=== PATIENT | male | born 1985 | race Caucasian/White ===

== ENCOUNTER 2024-02-06 14:39 | Emergency (ER) | payer BC, OTHER ==
[2024-02-06] MEDS ORDERED: ONDANSETRON 4 MG/2 ML VIAL ONE (15:20)
[2024-02-06] MEDS ORDERED: NA CHLORIDE 0.9% 1,000 ML ONE (15:21)
[2024-02-06] MEDS ORDERED: MORPHINE 4 MG/ML SYR ONE (15:21)
[2024-02-06 15:54] LABS: Absolute Eosinophils 0.1 K/uL (0-0.5); Absolute Lymphocytes (CBC) 1.1 K/uL (0.7-4.9); Absolute Monocytes 0.3 K/uL (0.1-1.3); Absolute Neutrophil 7.7 K/uL (1.8-8.0); Basophils % 0.1 % (0-1.3); Hematocrit 52.5 % (39.6-49.0); Hemoglobin 17.8 g/dL (13.6-17.9); MCH 31.2 pg (27.0-35.0); MCHC 33.9 g/dL (32.0-36.0); Monocytes % 3.2 % (3.3-12.3); Neutrophils % 83.7 % (41.7-73.7); Nucleated Red Blood Cells % 0.1 % (0-0); Platelets 269 thou/uL (152-406); Red Cell Distribution Width 12.8 % (12.1-15.2)
[2024-02-06 15:57] LABS: PTT, Activated Partial Thromb 29.2 SECONDS (24.3-36.9); Protime INR 1.19
[2024-02-06 16:03] LABS: Albumin 3.9 g/dL (3.4-5.0); Albumin/Globulin Ratio 1.1 (1.1-1.8); Anion Gap 12.2 mEq/L (5.0-15.0); Bilirubin Total 0.7 mg/dL (0.2-1.0); Globulin 3.5 g/dL (2.3-3.5); Potassium 4.2 mEq/L (3.5-5.1); Protein, Total 7.4 g/dL (6.4-8.2)
[2024-02-06] MEDS ORDERED: FENTANYL CITR 100 MCG/2 ML ONE (17:02)
--- NOTE | 2024-02-06 17:16 | RAD REPORT ---
EXAM DESCRIPTION: CT - Abdomen Pelvis W Contrast - 02/06/2024 4:36 pm CLINICAL HISTORY: ABD PAIN COMPARISON: No comparisons TECHNIQUE: Thin cut axial CT imaging of the abdomen and pelvis was performed following intravenous a dministration of iodinated contrast. Multiplanar reformats were generated and reviewed. All CT scans are performed using dose optimization technique as appropriate and may include automated exposure control or mA/KV adjustment according to patient size. FINDINGS: No suspicious findings in the lung bases. The liver, spleen, and pancreas show no suspicious findings. Gallbladder and biliary tree are also wi thout suspicious finding. Symmetric renal function is seen with no hydronephrosis or suspicious renal mass. Sub centimeter bila teral renal cortical fluid density lesions, difficult to characterize. No dilated bowel loops or bowel wall thickening. Nonspecific fluid opacification within segments of n ondistended small bowel and the ascending colon. Appendix is unremarkable. No free air, free fluid or inflammatory stranding. No hernia, mass or bulky lymphadenopathy. The urinary bladder is without sig nificant finding. No suspicious bony findings. IMPRESSION: No acute intra-abdominal process. Distal small bowel and ascending colon nonspecific fluid opacification as above, may relate to diarrh eal state.
--- NOTE | 2024-02-06 17:30 | ER ---
Nurse's Notes [facility] Name: Hayden Sepulveda Age: 38 yrs Sex: Male : 1985 Arrival Date: 02/06/2024 Time: 14:39 Bed 11 Private MD: Diagnosis: Noninfective gastroenteritis and colitis, unspecified Presentation: 02/05 15:09 Coronavirus screen: At this time, the client does not indicate any symptoms associated as6 with coronavirus-19. Ebola Screen: No symptoms or risks identified at this time. Risk Assessment: Do you want to hurt yourself or someone else? Patient reports no desire to harm self or others. 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 Initial Sepsis Screen: Does the patient meet any 2 criteria? No. Patient's initial sepsis screen is negative. Does the patient have a suspected source of infection? No. Patient's initial sepsis screen is negative. Onset of symptoms was February 06, 2024. 15:14 Acuity: REJI 3 as6 Triage Assessment: 15:15 General: Appears in no apparent distress. uncomfortable, Behavior is calm, cooperative, as6 restless. Pain: Complains of pain in umbilical area. EENT: No deficits noted. No signs and/or symptoms were reported regarding the EENT system. Neuro: Level of Consciousness is awake, alert, obeys commands, Oriented to person, place, time, situation. Cardiovascular: Capillary refill < 3 seconds Patient's skin is warm and dry. Respiratory: Respiratory effort is even, unlabored, Respiratory pattern is regular, symmetrical. GI: Reports lower abdominal pain, upper abdominal pain, diarrhea, nausea, vomiting. : No deficits noted. No signs and/or symptoms were reported regarding the genitourinary system. Derm: Skin is intact, is healthy with good turgor. Musculoskeletal: Circulation, motion, and sensation intact. Historical: - Allergies: 15:15 No Known Allergies; as6 - PMHx: 15:15 None; as6 - PSHx: 15:15 hernia; as6 - Immunization history:: Adult Immunizations up to date. - Infectious Disease History:: Denies. - Social history:: Smoking status: Patient denies any tobacco usage or history of. Screenin:17 [facility] ED Fall Risk Assessment (Adult) History of falling in the last 3 months, as6 including since admission No falls in past 3 months (0 pts) Confusion or Disorientation No (0 pts) Intoxicated or Sedated No (0 pts) Impaired Gait No (0 pts) Mobility Assist Device Used No (0 pt) Altered Elimination No (0 pt) Score/Fall Risk Level 0 - 2 = Low Risk Oriented to surroundings, Maintained a safe environment, Educated pt \T\ family on fall prevention, incl call for assistance when getting out of bed, Assessed \T\ reinforced patient's understanding of fall precautions. Abuse screen: Denies threats or abuse. Denies injuries from another. Nutritional screening: No deficits noted. Tuberculosis screening: No symptoms or risk factors identified. Assessment: 17:05 Reassessment: Patient appears in no apparent distress at this time. pt states slight as6 improvement in pain and nausea. provider notified of pt discomfort level. Vital Signs: 15:14 BP 112 / 71; Pulse 95; Resp 18 S; Temp 97.3(TE); Pulse Ox 99% on R/A; Weight 99.79 kg as6 (R); Height 5 ft. 10 in. (R); Pain 10/10; 17:06 BP 106 / 75; Pulse 92; Resp 16; Temp 97.2; Pulse Ox 99% on R/A; as6 15:14 Body Mass Index 31.57 (99.79 kg, 177.8 cm) as6 15:14 Pain Scale: Adult as6 ED Course: 14:40 Patient arrived in ED. ts1 14:41 Elli Comer PA-C is PHCP. sb4 14:41 Dante Waters MD is Attending Physician. sb4 15:09 Bandar Hahn, SATURNINO is Primary Nurse. as6 15:15 Triage completed. as6 15:17 Arm band placed on. as6 15:17 Bed in low position. Call light in reach. Client placed on continuous cardiac and pulse as6 oximetry monitoring. NIBP monitoring applied. 15:40 Blood Culture Adult (2) Sent. as6 15:40 Lactate w/ 2H reflex if indic. Sent. as6 15:40 Protime (+inr) Sent. as6 15:40 Ptt, Activated Sent. as6 15:40 CBC with Diff Sent. as6 15:40 Lipase Sent. as6 15:40 CMP Sent. as6 15:41 Inserted saline lock: 20 gauge in right antecubital area, using aseptic technique. as6 Blood collected. 16:38 CT Abd/Pelvis - IV Contrast Only In Process Unspecified. EDMS 17:36 Provided Education on: rx teaching. as6 17:36 No provider procedures requiring assistance completed. IV discontinued, intact, as6 bleeding controlled, No redness/swelling at site. Pressure dressing applied. Administered Medications: 15:41 Drug: NS 0.9% IV 1000 ml IV at 1 bolus Per protocol; 1000 mL bolus Route: IV; Rate: 1 as6 bolus; Site: right antecubital; 17:37 Follow up: Response: No adverse reaction; IV Status: Completed infusion; IV Intake: as6 1000ml 15:41 Drug: Ondansetron IVP 4 mg IVP once; over 2 minutes Route: IVP; Site: right antecubital;as6 17:37 Follow up: Response: No adverse reaction as6 15:41 Drug: morphine IVP or IV 4 mg IVP once over 4 mins Route: IVP; Infused Over: 4 mins; as6 Site: right antecubital; 17:37 Follow up: Response: No adverse reaction as6 17:05 Drug: fentaNYL (PF) IVP 50 mcg IVP once Route: IVP; Site: right antecubital; as6 17:37 Follow up: Response: No adverse reaction as6 Medication: 15:17 VIS not applicable for this client. as6 Intake: 17:37 IV: 1000ml; Total: 1000ml. as6 Outcome: 17:29 Discharge ordered by . [email or web address] 17:36 Discharged to home ambulatory, as6 17:36 Condition: stable 17:36 Discharge instructions given to patient, Instructed on discharge instructions, follow up and referral plans. medication usage, Demonstrated understanding of instructions, follow-up care, medications, Prescriptions given X 2, 17:37 Patient left the ED. as6 Signatures: Dispatcher [employer] Bandar Leahy RN RN as6 Elli Comer, PAShawnC PAShawnC sb4 Gloria Schroeder, SELINA PAS ts1
--- NOTE | 2024-02-06 17:30 | EDPHYS ---
Physician Documentation [facility] Name: Hayden Sepulveda Age: 38 yrs Sex: Male : 1985 Arrival Date: 02/06/2024 Time: 14:39 Bed 11 Private MD: ED Physician Dante Waters HPI: 02/05 15:22 This 38 yrs old Male presents to ER via Ambulatory with complaints of Abdominal Pain, sb4 Vomiting. 15:22 The patient presents with abdominal pain in the periumbilical area. Onset: The sb4 symptoms/episode began/occurred this morning. The symptoms do not radiate. Associated signs and symptoms: Pertinent positives: nausea, vomiting, and diarrhea. The patient has not experienced similar symptoms in the past. The patient has not recently seen a physician. Historical: - Allergies: 15:15 No Known Allergies; as6 - PMHx: 15:15 None; as6 - PSHx: 15:15 hernia; as6 - Immunization history:: Adult Immunizations up to date. - Infectious Disease History:: Denies. - Social history:: Smoking status: Patient denies any tobacco usage or history of. ROS: 15:22 Constitutional: Negative for fever, chills, and weight loss, sb4 15:22 Abdomen/GI: Positive for abdominal pain, nausea, vomiting, and diarrhea, 15:22 All other systems are negative, Exam: 15:22 Head/Face: Normocephalic, atraumatic. Eyes: Extra-ocular motions intact. Periorbital sb4 areas with no swelling, redness, or edema. ENT: Mucous membranes moist. Cardiovascular: Regular rate and rhythm with a normal S1 and S2. Respiratory: Lungs have equal breath sounds bilaterally, clear to auscultation and percussion. No rales, rhonchi or wheezes noted. No increased work of breathing, no retractions or nasal flaring. Skin: Warm, dry with normal turgor. Normal color with no rashes, no lesions, and no evidence of cellulitis. MS/ Extremity: Pulses equal, no cyanosis. Neurovascular intact. Full, normal range of motion. 15:22 Constitutional: The patient appears alert, awake, uncomfortable, 15:22 Abdomen/GI: Inspection: abdomen appears normal, Bowel sounds: normal, Palpation: soft, mild abdominal tenderness, in the right upper quadrant, left upper quadrant, right lower quadrant and left lower quadrant, Vital Signs: 15:14 BP 112 / 71; Pulse 95; Resp 18 S; Temp 97.3(TE); Pulse Ox 99% on R/A; Weight 99.79 kg as6 (R); Height 5 ft. 10 in. (R); Pain 10/10; 17:06 BP 106 / 75; Pulse 92; Resp 16; Temp 97.2; Pulse Ox 99% on R/A; as6 15:14 Body Mass Index 31.57 (99.79 kg, 177.8 cm) as6 15:14 Pain Scale: Adult as6 MDM: 15:07 Patient medically screened. sb4 17:29 Data reviewed: vital signs, nurses notes, lab test result(s), radiologic studies, and sb4 as a result, I will discharge patient. Counseling: I had a detailed discussion with the patient and/or guardian regarding the historical points, exam findings, and any diagnostic results supporting the discharge/admit diagnosis, lab results, radiology results, to return to the emergency department if symptoms worsen or persist or if there are any questions or concerns that arise at home. 02/05 15:17 Order name: CBC with Diff; Complete Time: 15:57 sb4 02/05 15:17 Order name: CMP; Complete Time: 16:05 sb4 02/05 15:17 Order name: Lipase; Complete Time: 16:05 02/05 15:17 Order name: Blood Culture Adult (2) sb02/05 15:17 Order name: Lactate w/ 2H reflex if indic.; Complete Time: 16:08 sb4 02/05 15:17 Order name: Protime (+inr); Complete Time: 15:57 sb4 02/05 15:17 Order name: Ptt, Activated; Complete Time: 15:57 sb4 02/05 15:17 Order name: CT Abd/Pelvis - IV Contrast Only; Complete Time: 17:19 sb4 02/05 15:17 Order name: IV Saline Lock; Complete Time: 15:40 sb4 02/05 15:17 Order name: Labs collected and sent; Complete Time: 15:40 sb4 Administered Medications: 15:41 Drug: NS 0.9% IV 1000 ml IV at 1 bolus Per protocol; 1000 mL bolus Route: IV; Rate: 1 as6 bolus; Site: right antecubital; 17:37 Follow up: Response: No adverse reaction; IV Status: Completed infusion; IV Intake: as6 1000ml 15:41 Drug: Ondansetron IVP 4 mg IVP once; over 2 minutes Route: IVP; Site: right antecubital;as6 17:37 Follow up: Response: No adverse reaction as6 15:41 Drug: morphine IVP or IV 4 mg IVP once over 4 mins Route: IVP; Infused Over: 4 mins; as6 Site: right antecubital; 17:37 Follow up: Response: No adverse reaction as6 17:05 Drug: fentaNYL (PF) IVP 50 mcg IVP once Route: IVP; Site: right antecubital; as6 17:37 Follow up: Response: No adverse reaction as6 Disposition: 18:09 Co-signature as Attending Physician, Dante Waters MD I reviewed the patient's care rn provided by the Advanced Practice Provider and agree with the diagnosis and treatment plan. Disposition Summary: 02/06/24 17:29 Discharge Ordered Notes: Location: Home sb4 Problem: new sb4 Symptoms: have improved sb4 Condition: Stable sb4 Diagnosis - Noninfective gastroenteritis and colitis, unspecified sb4 Followup: sb4 - With: Emergency Department - When: As needed - Reason: Trouble breathing, Worsening of condition Discharge Instructions: - Discharge Summary Sheet sb4 - Viral Gastroenteritis, Adult sb4 Forms: - Work release form sb4 - Patient Portal Instructions sb4 - Leadership Thank You Letter sb4 Prescriptions: - dicyclomine 20 mg Oral tablet - take 1 tablet ORAL route 3 times per day; 20 tablet; Refills: 0, Product sb4 Selection Permitted - ondansetron 8 mg Oral Tablet,disintegrating - take 1 tablet ORAL route every 6 hours; 12 tablet; Refills: 0, Product sb4 Selection Permitted Signatures: Dispatcher [employer] Dante Santacruz MD MD rn Slawson, Ashby, RN RN as6 Elli Comer PA-C PA-C sb4 Corrections: (The following items were deleted from the chart) 15:18 15:18 CBC+H.LAB.BRZ ordered. EDMS EDMS 15:18 15:18 COMPREHENSIVE METABOLIC PANEL+C.LAB.BRZ ordered. EDMS EDMS 15:18 15:18 LIPASE+C.LAB.BRZ ordered. EDMS EDMS 15:18 15:18 BLOOD CULTURE*+BA.LAB.BRZ ordered. EDMS EDMS 15:18 15:18 LACTATE+C.LAB.BRZ ordered. EDMS EDMS 15:18 15:18 PROTIME (+INR)+COAG.LAB.BRZ ordered. EDMS EDMS 15:18 15:18 PTT, ACTIVATED+COAG.LAB.BRZ ordered. EDMS EDMS 15:18 15:18 Abdomen Pelvis W Con+CT.RAD.BRZ ordered. EDMS EDMS
[2024-02-06 18:14] VITALS: BP 106/75; TEMP 97.2; O2SAT 99
== END 2024-02-06 17:37 | disposition home or self-care (01) ==
LOC: ER 14:39
DX: K52.9 Noninfective gastroenteritis and colitis, unspecified (principal)
CPT/HCPCS: 87040 ×2; 85025; 36415; 85610; 83605; 85730; 83690; 80053; 74177; Q9967; J3010; J2405; J7030; 96361; 96374; 96375; 99284